=== PATIENT | male | born 1950 | race Native Hawaiian/Other Pacific Islander ===

== ENCOUNTER 2021-10-16 13:34 | Outpatient (CLI) | payer BC | END 2021-10-16 19:05 | disposition home or self-care (01) | LOC: LAB 13:34 | PROVIDERS: ATTEND Nurse Practitioner Family | DX: L89.152 Pressure ulcer of sacral region, stage 2 (principal) | CPT/HCPCS: 87070; 87077; 87186; 87205 ==

== ENCOUNTER 2022-09-10 12:28 | Outpatient (CLI) | payer BC | END 2022-09-10 19:06 | disposition home or self-care (01) | LOC: LABW 12:28 | PROVIDERS: ATTEND Internal Medicine | DX: R19.7 Diarrhea, unspecified (principal) | CPT/HCPCS: 82272; 83630; 87015; 87045; 87324; 87328; 87329; 87449; 87899 ==